=== PATIENT | female | born 1975 | race Caucasian/White ===

== ENCOUNTER → 2017-06-17 | Outpatient (REF) ==
[~2017-06-17] MED LIST: ALBU17IN INH; ALBU83IN INH; BUSP5TA PO; CLON2TAB PO; FENT1DIS14 TD; LACT10SO29 PO; LATU20TA PO; LORA10TA2 PO; OMEP40CA2 PO; ONDA4TAB5 PO; OXYC1TAB23 PO; SERT25TA88 PO; TEMA15CA2 PO; TIZA4CAP3 PO; TOPA50TA8 PO; TUMS500C PO; VITA100067 PO; VYVA50CA4 PO
--- NOTE | 2017-06-17 13:51 | REP ---
CERVICAL SPINE: AP and lateral views of the cervical spine are performed. There is no compression fracture or malalignment with normal cervical lordosis. There is no prevertebral soft tissue swelling. There is a ligamentous calcification at the anterior aspect of C6-7 disc space. There is mild disc space narrowing at C5-6. IMPRESSION: Very mild degenerative changes. Signed by Ac Packer MD 06/17/2017 01:57 P
--- NOTE | 2017-06-17 13:53 | REP ---
LUMBOSACRAL SPINE: AP and lateral views of the lumbosacral spine are performed and compared to a prior study of 08/16/2015. There is no compression fracture. There is minimal disc space narrowing at L4-5 unchanged. There is mild sclerosis at the posterior facet joints. The posterior elements are intact. Metallic clips are seen in the right upper quadrant. IMPRESSION: Minor degenerative changes unchanged when compared to the prior study of 08/16/2015. Signed by Ac Packer MD 06/17/2017 01:57 P
== END ==
LOC: M SMT 12:27
PROVIDERS: ATTEND Internal Medicine
DX: Z02.71 Encounter for disability determination (principal)

== ENCOUNTER → 2017-08-04 | Outpatient (CLI) | payer OTHER ==
[~2017-08-04] MED LIST changes: +CLON1TAB PO; +FLUT22IN INH; +REXU1TAB2 PO
[2017-08-04 13:50] LABS: BASO # 0.1 10^3/uL (0.0-0.2); BASO % 0.6 % (0.0-1.0); EOS # 0.4 10^3/uL (0.0-0.50); EOS % 2.7 % (0.0-3.0); IMMATURE GRANULOCYTE % 0.3 % (0-0); LYMPH # 3.3 10^3/uL (1.5-4.5); MEAN CORPUSCULAR HEMOGLOBIN 32.8 pg (27.0-33.0); MEAN CORPUSCULAR HGB CONC 33.9 g/dl (32.0-36.5); MEAN CORPUSCULAR VOLUME 96.9 fl (80.0-96.0); MONO # 0.6 10^3/uL (0.0-0.8); MONO % 4.4 % (0.0-5.0); NEUTROPHILS # 9.2 10^3/uL (1.8-7.7); PLATELET COUNT, AUTOMATED 340 10^3/uL (150-450); RED CELL DISTRIBUTION WIDTH 12.1 % (11.5-14.5); WHITE BLOOD COUNT 13.6 10^3/uL (4.0-10.0)
[2017-08-04 14:36] LABS: ALBUMIN 3.7 GM/DL (3.2-5.2); ALBUMIN/GLOBULIN RATIO 1.23 (1.00-1.93); ALKALINE PHOSPHATASE 66 U/L (45-117); ALT/SGPT 9 U/L (12-78); AST/SGOT 12 U/L (7-37); BILIRUBIN,DIRECT 0.1 MG/DL (0.0-0.2); BILIRUBIN,TOTAL 0.3 MG/DL (0.2-1.0); BLOOD UREA NITROGEN 14 MG/DL (7-18); CREATININE FOR GFR 0.69 MG/DL (0.55-1.02); GLOMERULAR FILTRATION RATE > 60.0 (>58); TOTAL PROTEIN 6.7 GM/DL (6.4-8.2)
== END ==
LOC: M LAB 12:28
PROVIDERS: ATTEND Internal Medicine Gastroenterology
DX: R10.13 Epigastric pain (principal)

== ENCOUNTER → 2025-08-22 | Outpatient (REF) ==
[~2025-08-22] MED LIST changes: +ALBU2.5V10 INH; -ALBU83IN INH; -CLON1TAB PO; +CLON1TAB8 PO; -CLON2TAB PO; +CLON2TAB7 PO; -LACT10SO29 PO; +LACT20EL PO; +LORA-243 PO; -LORA10TA2 PO; -OMEP40CA2 PO; +OMEP40CA4 PO; +ONDA-83 PO; -ONDA4TAB5 PO; +SERT25TA21 PO; -SERT25TA88 PO; +TIZA4CAP PO; -TIZA4CAP3 PO
== END ==
LOC: M PLAIMG 12:17
PROVIDERS: ATTEND Internal Medicine
DX: R52 Pain, unspecified (principal)